=== PATIENT | male | born 1965 | race Caucasian/White ===

== ENCOUNTER → 2024-07-16 09:53 | Outpatient (CLI) | payer OTHER, SELFPAY ==
--- NOTE | 2024-07-16 10:00 | DI.RAD.S_ITS ---
PROCEDURE: XR THORACIC SPINE 3V INDICATIONS: SHOULDER PAIN TECHNIQUE: 3 views of the thoracic spine were acquired. COMPARISON: None. FINDINGS: Thoracic spine curvature and alignment: Normal. Bones: There are no osseous abnormalities. Disc spaces: Mild degenerative disc disease seen throughout the mid lower thoracic spine. Intervertebral foramen: Grossly normal in width. Soft tissues: No soft tissue swelling, calcification or mass. IMPRESSION: Mild degenerative disc disease mid lower thoracic spine Dictated by: Andrea Castro M.D. on 07/17/2024 at 10:35 Approved by: Andrea Castro M.D. on 07/17/2024 at 10:36
--- NOTE | 2024-07-16 10:00 | DI.RAD.S_ITS ---
PROCEDURE: XR CERVICAL SPINE 2V OR 3V INDICATIONS: shoulder pain TECHNIQUE: Three views of the cervical spine were acquired. COMPARISON: None. FINDINGS: Cervical spine curvature and alignment: Normal. Bones: There are no osseous abnormalities. Disc spaces: Mild C4-5 and C5-6 degenerative disc disease with minor calcification in the anterior annulus appreciated. Soft tissues: No soft tissue swelling, calcification or mass. IMPRESSION: Mild degeneration. Dictated by: Andrea Castro M.D. on 07/17/2024 at 10:34 Approved by: Andrea Castro M.D. on 07/17/2024 at 10:35
--- NOTE | 2024-07-16 10:01 | DI.RAD.S_ITS ---
PROCEDURE: XR SHOULDER LT MIN 2V INDICATIONS: Pain TECHNIQUE: Three views of the right shoulder were acquired. COMPARISON: None. FINDINGS: Bones: There are no osseous abnormalities. Acromioclavicular and glenohumeral joints: Moderate acromioclavicular degeneration noted. Glenohumeral joint is normal. Soft tissues: No soft tissue swelling, calcification or mass. IMPRESSION: Moderate acromioclavicular degeneration Dictated by: Andrea Castro M.D. on 07/17/2024 at 10:39 Approved by: Andrea Castro M.D. on 07/17/2024 at 10:40
== END ==
LOC: RAD 09:58
PROVIDERS: PCP Family Medicine; Referring Provider Family Medicine; Visit Provider Family Medicine
DX: G89.29 Other chronic pain (principal); M19.012 Primary osteoarthritis, left shoulder; M51.34 Other intervertebral disc degeneration, thoracic region
CPT/HCPCS: 72040; 72072; 73030

== ENCOUNTER → 2024-10-04 11:39 | Outpatient (CLI) | payer OTHER, SELFPAY ==
--- NOTE | 2024-10-04 11:40 | DI.US.S_ITS ---
PROCEDURE: US ABD AORTA ANEURYSM SCREEN INDICATIONS: SCREENING / FAMILY HISTORY OF AAA TECHNIQUE: Real time scanning was performed of the aorta and iliac arteries, with image documentation. COMPARISON: None. FINDINGS: Aorta: Proximal aortic diameter measures 2.6 x 2.4 cm. Mid-aorta measures 2.0 by 2.0 cm. Distal aortic diameter is 1.9 x 2.0 cm. Iliac arteries: Right common iliac artery measures 1.5 cm. Left common iliac artery measures 1.6 cm. IMPRESSION: No aneurysm or area of focal stenosis found. Dictated by: Gerson Duque M.D. on 10/04/2024 at 13:07 Approved by: Gerson Duque M.D. on 10/04/2024 at 13:08
== END ==
PROVIDERS: PCP Family Medicine; Referring Provider Family Medicine; Visit Provider Family Medicine
DX: Z13.6 Encounter for screening for cardiovascular disorders (principal); Z82.49 Family history of ischemic heart disease and other diseases of the circulatory system
CPT/HCPCS: 76706

== ENCOUNTER 2024-11-18 08:31 | Day surgery (SDC) | payer OTHER, SELFPAY ==
--- NOTE | 2024-11-18 | PATH_ITS ---
[facility] Accession Number: [id number] No. of containers..01 Tissue . 01 Material submitted: . colon - COLON, RIGHT . 01 Diagnosis: COLON, RIGHT: Tubular adenoma. STO 11/22/2024 1504 Local . 01 Electronically signed: . Jemal Cristina MD, Pathologist NPI- [id number] . 01 Gross description: . COLON, RIGHT: Received in formalin is 1 fragment(s) of ibrahim, soft tissue measuring 0.3 x 0.3 x 0.3 cm submitted entirely in 1 cassette(s) /ROBB 11/22/2024 1504 Local . 01 Pathologist provided ICD-10: D12.2 . 01 CPT . 870414 Specimen Comment: A courtesy copy of this report has been sent to [phone] Performed at: [address] [facility] [id number] MD Jemal Cristina MD Phone: [phone]
[2024-11-18 09:06] VITALS: BP 152/86; PULSE 77; RESP 16; TEMP 36.2; O2SAT 97
--- NOTE | 2024-11-18 09:07 | PM.HP.IH.1 ---
History of Present Illness History of Present Illness Chief complaint: Colonoscopy Narrative: First screening colonoscopy [facility] Social History Smoking Status: Never smoker alcohol intake: current Meds Home Medications and Allergies Home Medications Medication Instructions Recorded Confirmed Type No Known Home Medications 11/18/24 11/18/24 History Allergies Allergy/AdvReac Type Severity Reaction Status Date / Time No Known Drug Allergies Allergy Verified 11/18/24 08:58 Exam Vital Signs (past 8 hours): - 11/18/24 09:06 Temperature 97.1 F L Pulse Rate 77 Respiratory Rate 16 Blood Pressure 152/86 H Pulse Oximetry 97 Oxygen Delivery Method Room Air Oxygen Delivery Method Room Air Narrative Exam Narrative: Oropharynx free of lesions Assessment & Plan Assessment & Plan narrative: For screening for colon cancer. Risks, benefits, alternatives have been explained. Time-Based Coding :: [TOTAL MINUTES] spent with patient and on the chart (including review of chart, obtaining history, exam, reviewing outside data, placing orders, documenting exam and treatment plan, and counseling patient) on [DATE]. [facility] Emergency Department Clinician Document charge(s): No
[2024-11-18] MEDS: LACTATED RINGERS 1,000 ML 42 ML IV (09:08)
--- NOTE | 2024-11-18 09:09 | PM.OP.COLON ---
Operative Date/Time/Diagnoses Date of procedure: 11/18/24 Time of procedure: 10:10 Pre-op diagnosis: See indication and findings Post-op diagnosis: same Procedure & Clinicians Study performed: Colonoscopy Same procedure as scheduled: Yes Indications: Screening Surgeon: Beny Gan Procedure Notes Procedure in detail: After informed consent was obtained the patient was placed in left lateral decubitus position. The video colonoscope was introduced to the rectum slowly advanced cecum. Preparation was good. On slow withdrawal mucosa was carefully examined. The scope was removed. The patient tolerated procedure well. Blood loss none Complications none Sedation mac Findings 1. 5 mm sessile polyp in the right colon Jumbo biopsy removed completely 2. Otherwise negative colonoscopy to cecum Will be in touch regarding pathology and recall whether it should be in 5 years or 10 years.
[2024-11-18 10:08] VITALS: BP 107/73; PULSE 65; RESP 12; TEMP 36.6; O2SAT 94
[2024-11-18 10:13] VITALS: BP 110/70; PULSE 67; RESP 16; O2SAT 95
[2024-11-18 10:18] VITALS: BP 101/67; PULSE 64; RESP 16; O2SAT 96
[2024-11-18 10:23] VITALS: BP 109/82; PULSE 80; RESP 16; TEMP 36.6; O2SAT 96
== END 2024-11-18 10:39 | disposition home or self-care (01) ==
PROVIDERS: PCP Family Medicine; Referring Provider Internal Medicine Gastroenterology; Visit Provider Internal Medicine Gastroenterology
PROC: 0DJD8ZZ Inspection of Lower Intestinal Tract, Via Natural or Artificial Opening Endoscopic (ICD-10-PCS; CPT 45378; principal; 2024-11-18 10:00)
DX: Z12.11 Encounter for screening for malignant neoplasm of colon (principal); D12.2 Benign neoplasm of ascending colon
CPT/HCPCS: 45380; J2704